=== PATIENT | male | born 1940 | race Caucasian/White ===

== ENCOUNTER 2019-07-16 11:16 | Emergency (ER) | payer OTHER ==
[~2019-07-16] VITALS: Ht 193 cm; Wt 90.9 kg
[~2019-07-16 11:16] MED LIST: FLINTSTONE1 TAB.CHEW PO
[2019-07-16 11:20] VITALS: Ht 193 cm; Wt 90.9 kg
[2019-07-16 12:26] LABS: BASOPHILS 0.4 % (0-2); EOSINOPHILS 3.1 % (0-7); HEMATOCRIT 45.1 % (42.0-54.0); IMMATURE GRANULOCYTES 0.2 % (0-5); LYMPHOCYTES 6.4 % (15-50); MCH 32.5 pg (26.0-34.0); MCHC 33.3 g/dL (31.0-37.0); MCV 97.6 fL (80.0-100.0); MEAN PLATELET VOLUME 10.1 fL (7.4-10.4); MONOCYTES 17.2 % (2-11); NEUTROPHILS 72.7 % (40-80); PLATELET COUNT 140 10x3/uL (130-400); RBC 4.62 10x6/uL (4.20-6.10); WBC 5.2 10x3/uL (4.8-10.8)
[2019-07-16 12:41] LABS: CALC OSMOLALITY 275 mosm/kg (275-300); CALCIUM 8.6 mg/dL (8.5-10.1); CARBON DIOXIDE 26.8 mmol/L (21.0-32.0); CHLORIDE - SERUM 104 mmol/L (98-107); CREATININE - SERUM 1.1 mg/dL (0.6-1.3); GLUCOSE 123 mg/dL (74-106); SODIUM 138 mmol/L (136-145); UREA NITROGEN 10 mg/dL (7-18); eGFR NON AFRICAN AMERICAN 68 mL/min (90-120)
[2019-07-16 12:57] LABS: ALBUMIN 3.5 g/dL (3.4-5.0); ALKALINE PHOSPHATASE 53 U/L (30-120); ALT (SGPT) 27 U/L (10-68); BILIRUBIN - TOTAL 1.17 mg/dL (0.2-1.3); C-REACTIVE PROTEIN 2.7 mg/dL (0.0-0.9); CKMB 1.4 U/L (0.0-3.6); CREATINE KINASE 161 UL (21-232); PROTEIN - SERUM 6.7 g/dL (6.4-8.2)
[2019-07-16 12:58] LABS: TROPONIN-I < 0.017 ng/mL (0.000-0.060)
[2019-07-16 13:27] LABS: GLUCOSE NEGATIVE (NEGATIVE); NITRITE NEGATIVE (NEGATIVE)
[2019-07-16 13:28] LABS: BILIRUBIN NEGATIVE (NEGATIVE); KETONE NEGATIVE (NEGATIVE); UROBILINOGEN NORMAL (NORMAL)
[2019-07-16] MEDS ORDERED: MIRALAX17 GM PO (15:21)
[2019-07-16 18:10] VITALS: BP 144/94
== END 2019-07-16 18:12 | disposition home or self-care (01) ==
LOC: D.ER 11:16
PROVIDERS: Family Medicine
DX: K56.41 Fecal impaction (principal); R05 Cough; R68.89 Other general symptoms and signs; R33.9 Retention of urine, unspecified